=== PATIENT | male | born 1955 | race Caucasian/White ===

== ENCOUNTER 2018-04-23 21:35 | Emergency (ER) | payer BC, MEDICAID ==
--- NOTE | 2018-04-23 22:17 | ED Physician Documentation ---
PD HPI NVD - Stated complaint Stated Complaint: N/V/D - Chief complaint Chief Complaint: Abd Pain - History obtained from History obtained from: Patient - History of Present Illness Timing - onset: How many hours ago (2 07/09), Today Timing - duration: Hours Timing - details: Abrupt onset, Still present (much improved after 1-2 hours of marked illness. No vomiting now and nausea about gone enroute here. Still concerned about mushroom toxicity and his was similarly sick this evening.) Associated symptoms: Abdominal pain, Loss of appetite. No: Fever, Hematemesis Contributing factors: Bad food (He and his had picked [place] mushrooms in [place] and had dehydrated them. The patient had rehydrated some of them and cut them up and put them into a sauce with dinner tonight without cooking them. He and his both abruptly sick about 20 minutes after eating. They also had a blue cheese salad dressing on salad and some chicken that seemed well cooked. They presume it was from the mushroom. They are concerned about potential liver toxicity or other significant problems. He and his have lessened symptoms on route to the hospital.). No: Sick contact Improved by: No: Vomiting Worsened by: Eating Similar symptoms before: Has not had sx before Recently seen: Not recently seen Review of Systems Constitutional: denies: Fever, Myalgias Cardiac: denies: Chest pain / pressure, Palpitations Respiratory: denies: Dyspnea GI: reports: Abdominal Pain (cramping upper abdomen), Nausea, Vomiting, Diarrhea (mild). denies: Hematemesis Skin: denies: Rash, Lesions Neurologic: denies: Altered mental status, Headache PD PAST MEDICAL HISTORY - Past Medical History Past Medical History: No - Past Surgical History Past Surgical History: Yes Ortho: Other - Present Medications Home Medications: Ambulatory Orders Medication Instructions Recorded Confirmed No Known Home Medications 04/23/18 04/23/18 - Allergies Allergies/Adverse Reactions: Allergies Allergy/AdvReac Type Severity Reaction Status Date / Time No Known Drug Allergies Allergy Verified 04/23/18 21:49 - Social History Does the pt smoke?: No Smoking Status: Never smoker Does the pt drink ETOH?: Yes Does the pt have substance abuse?: No - Immunizations Immunizations are current?: Yes - POLST Patient has POLST: No PD ED PE NORMAL - Vitals Vital signs reviewed: Yes - General General: Alert and oriented X 3, No acute distress, Well developed/nourished - HEENT HEENT: Pharynx benign - Neck Neck: Supple, no meningeal sign, No adenopathy - Cardiac Cardiac: RRR, No murmur - Respiratory Respiratory: Clear bilaterally - Abdomen Abdomen: Normal bowel sounds, Soft, Non tender, Non distended - Derm Derm: Normal color, Warm and dry - Neuro Neuro: Alert and oriented X 3, No motor deficit, Normal speech Results - Vitals Vitals: Vital Signs - 24 hr 04/23/18 04/24/18 21:47 00:20 Temperature 36 C L 36.0 C L Heart Rate 80 66 Respiratory 17 16 Rate Blood Pressure 135/93 H 122/81 H O2 Saturation 98 98 Oxygen O2 Source Room air - Labs Labs: Laboratory Tests 04/23/18 23:30 Sodium 138 Potassium 3.9 Chloride 103 Carbon Dioxide 28 Anion Gap 7.0 BUN 22 H Creatinine 0.9 Estimated GFR (MDRD) 85 L Glucose 114 H Calcium 8.9 Total Bilirubin 0.6 AST 22 ALT 21 Alkaline Phosphatase 56 Total Protein 7.6 Albumin 4.3 Globulin 3.3 Albumin/Globulin Ratio 1.3 Lipase 45 PD MEDICAL DECISION MAKING - ED course Complexity details: reviewed results, considered differential (He and his both had abrupt onset of nausea and vomiting with upper abdominal cramping soon after eating dinner. It was within about 20 minutes of eating and they presume is from the mushrooms when his questioned him in he said that he had not cooked them at all. It is unclear whether the symptoms are from a toxicity of the mushroom which should be less common with no rales although possible with false clarke. There could have been contamination on the mushroom such as bacterial molds that caused food poisoning as well. There is symptoms are improving now and the patient is feeling pretty much normal on my exam. Given the abruptness of the toxicity, it would be much less likely to be 1 of the indolent liver toxic types of mushroom toxicities. Initial labs here are normal. They should cock any further use of the mushrooms that they have dehydrated.), d/w patient Departure - Departure Disposition: 01 Home, Self Care Clinical Impression: Nausea and vomiting Qualifiers: Vomiting type: unspecified Vomiting Intractability: non-intractable Qualified Code(s): R11.2 - Nausea with vomiting, unspecified Mushroom poisoning Qualifiers: Encounter type: initial encounter Injury intent: accidental or unintentional Qualified Code(s): T62.0X1A - Toxic effect of ingested mushrooms, accidental (unintentional), initial encounter Condition: Stable Record reviewed to determine appropriate education?: Yes Instructions: ED Food Poison Or Gastroenteritis Follow-Up: Jayden Rangel MD [Primary Care Provider] - Comments: Your blood tests this evening are normal. This may have been a intestinal irritation from the mushroom or could have potentially even been some contamination on the mushroom. Subsequently Cook any mushrooms before eating. If your symptoms are resolved pretty much now, I would not expect him to return. An abrupt illness from the mushroom like this is usually not associated with the progressive liver toxicity. If you have any continued nausea or stomach upset over the next couple of days, you could follow-up with your primary care to have them recheck the blood tests. If you feel normal, I would not necessarily see a need for repeating the blood tests. Discharge Date/Time: 04/24/18 00:22
[2018-04-23 23:57] LABS: ALBUMIN 4.3 g/dL (3.2-5.5); ALBUMIN/GLOBULIN RATIO 1.3 (1.0-2.2); BILIRUBIN,TOTAL 0.6 mg/dL (0.2-1.0); CALCIUM 8.9 mg/dL (8.5-10.3); CREATININE 0.9 mg/dL (0.6-1.2); TOTAL PROTEIN 7.6 g/dL (6.7-8.2)
[2018-04-24 00:28] VITALS: BP 122/81
== END 2018-04-24 00:22 | disposition home or self-care (01) ==
LOC: ED 21:35
DX: T62.0X1A Toxic effect of ingested mushrooms, accidental (unintentional), initial encounter (principal); R11.2 Nausea with vomiting, unspecified
CPT/HCPCS: 36415; 80053; 83690; 99283